=== PATIENT | male | born 1980 | race Caucasian/White ===

== ENCOUNTER → 2021-01-04 | Outpatient (CLI) | payer OTHER ==
[~2021-01-04] MED LIST: GADOTERATE 5 MMOL/10ML VIAL. INT ART ONE; IOHEXOL 300 MG/ML 50 ML VIAL. INT ART ONE; LIDOCAINE 1% Multi-Dose 20 ML VIAL. ID ONE; TELM40TA PO
--- NOTE | 2021-01-04 09:41 | KCIC ---
EXAM: Lumbar spine MRI without contrast. HISTORY: Pain. TECHNIQUE: Multiplanar, multisequence magnetic resonance imaging of the lumbar spine was performed wi thout contrast. COMPARISON: None. FINDINGS: There is minimal retrolisthesis of L5 and S1. There is degenerative endplate remodeling wit h disc space narrowing, disc desiccation, Schmorl's node formation and osteophytosis at this level. T here is no fracture or suspicious osseous lesion. The conus terminates at T12. At L1-L2, L2-L3, L3-L4 and L4-L5, there is no stenosis. At L5-S1, there is a broad-based posterior central to left lateral recess disc protrusion and there a re bilateral foraminal to extra foraminal disc osteophyte complexes. These are superimposed on a disc bulge and endplate remodeling. There is mild bilateral foraminal stenosis with abutment the exiting L5 nerve roots. There is effacement of the left lateral recess and abutment the traversing left S1 ne rve root. IMPRESSION: 1. L5-S1: Degenerative changes described above, resulting in mild bilateral foraminal stenosis with a butment the exiting bilateral L5 nerve roots and narrowing of the left lateral recess with abutment t he traversing left S1 nerve root. 2. No acute finding or additional evidence of lumbar stenosis. Electronically signed by: Esthela Graham MD (01/04/2021 9:39 AM) [id number]
--- NOTE | 2021-01-04 11:44 | KCIC ---
Study: MRI arthrogram of the left hip INDICATION: Left hip pain. COMPARISON: None. TECHNIQUE: Multiplanar MR imaging of the left hip performed after the intra-articular injection of ga dolinium. The details of the procedure, to include the volume of contrast administered, are described in a separate report. FINDINGS: Bones: No fracture, avascular necrosis or stress reaction. The small portion of the left SI joint inc luded in the [id number] is unremarkable. Slightly diminished offset at the superolateral femoral h ead/neck junction. No large cam deformity but radiographs with a frog-leg view would better assess. Labrum/cartilage: No discrete labral tear. No focal chondral defect or delamination. Ligamentum teres: Intact. Greater trochanteric bursa: Unremarkable. Musculotendinous: Intact gluteus medius and minimus, iliopsoas, rectus femoris femoris and common ham strings. Normal ischiofemoral space. Unremarkable adductors. Miscellaneous: No mass effect on the visualized sciatic nerve bundle. IMPRESSION: No discrete labral tear or chondral abnormality. Unremarkable tendons. Collectively no significant ab normality at the left hip to explain the patient's symptoms. Electronically signed by: ROBERT HOBBS MD (01/04/2021 11:41 AM) [id number]
--- NOTE | 2021-01-04 18:18 | KCIC ---
Left hip injection under fluoroscopy to facilitate a MR arthrogram 01/04/2021 CLINICAL HISTORY: Left hip pain. TECHNIQUE: After the risks and benefits of the procedure were explained to the patient, written infor med consent was obtained. The skin surface of the anterior left hip was prepped and draped in sterile fashion. 1 percent lidocaine was used as a local anesthetic. Under fluoroscopic guidance a 22-gauge spinal needle was advanced into the anterior aspect of the left hip joint. Intra-articular position o f the needle was confirmed with 5 cc of Omnipaque 300. Following this 8 cc of a solution of 5 cc of l idocaine, 15 cc of Omnipaque 300, 10 cc of normal saline and 0.1 cc of Clariscan were injected throug h the needle into the left hip. Following this the needle was removed and hemostasis was achieved at the puncture site. A sterile bandage was placed on the skin puncture site. The patient tolerated the procedure well and there were no immediate complications. The total fluoroscopic time for this study was 48 seconds. 1 fluoroscopic captured AP digital radiograph of the left hip was obtained. The patie nt was taken to MRI for further imaging. IMPRESSION: Technically successful fluoroscopically guided injection of the left hip to facilitate a MR arthrogram as discussed above. Electronically signed by: Brian Judge MD (01/04/2021 6:16 PM) [id number]
== END | disposition home or self-care (01) ==
LOC: KCIC MRI 08:16
PROVIDERS: ATTEND Family Medicine Sports Medicine
DX: M25.552 Pain in left hip (principal); M54.5 Low back pain; M48.07 Spinal stenosis, lumbosacral region; Z79.899 Other long term (current) drug therapy
CPT/HCPCS: 27093; 72148; 73722; 77002; A9575; J3490; Q9967; 73525